=== PATIENT | female | born 1990 | race American Indian/Alaskan Native ===

== ENCOUNTER 2017-04-20 02:09 | Inpatient (IN) | payer MEDICAID ==
--- NOTE | 2017-04-20 02:31 | History and Physical Report ---
History of Present Illness Date of examination: 04/20/17 Date of admission: 04/20/17 02:11 Chief complaint: leaking amniotic fluid from vagina, cramping History of present illness: EDC Calculations by LMP: 04/29/2017 Past Medical History Current Allergies (reviewed today): AMOXICILLIN (Critical) Past History : 4 Term Births: 2 Living Children: 2 Para: 2 # 1 Delivery date: 2004 Weeks Gestation: 4-6 Delivery type: SAB Comments: denies # 2 Delivery date: 2008 Weeks Gestation: term Delivery type: Anesthesia type: epidural Delivery location: [facility] Infant Sex: Female weight: 7-1 Comments: delivered by Arpita # 3 Delivery date: 2009 Weeks Gestation: term Delivery type: Anesthesia type: epidural Delivery location: [facility] Infant Sex: Male weight: 5-2 Visit EDC Confirmation: New working EDC: 04/29/2017 EDC by LMP: 04/29/2017 Genetic History Father of baby: Jaiden Small Thalassemia: mother: no father: no Neural tube defect: mother: no father: no Down's Syndrome: mother: no father: no Pavan-Sachs: mother: no father: no Sickle Cell Dz/Trait: mother: no father: no Hemophilia: mother: no father: no Muscular Dystrophy: mother: no father: no Cystic Fibrosis: mother: no father: no [place]'s Dz: mother: no father: no Mental Retardation: mother: no father: no Fragile X: mother: no father: no Other Genetic or Chromosomal Dz: mother: no father: no Child with other defect: mother: no father: no > 3 spont. abortions: mother: no Hx of stillbirth: mother: no Social History: Patient is Smoking History: Patient has never smoked. Risk Factors: Smoked Tobacco Use: Never smoker Smokeless Tobacco Use: Never Caffeine use: 1 drinks per day Alcohol use: no Exercise: no Seatbelt use: 100 % Dietary Counseling: pn yes Past Medical History: Negative Past Medical History Past Surgical History: Negative Past Surgical History Past History - Obstetrical History Expected Date of Delivery: 04/29/17 Actual Gestation: 38 Week(s) 5 Day(s) : 4 Para: 2 Hx # Term Pregnancies: 2 Number of Pregnancies: 0 Spontaneous Abortions: 1 Induced : 0 Number of Living Children: 2 Medications and Allergies Allergies Allergy/AdvReac Type Severity Reaction Status Date / Time amoxicillin Allergy Rash Verified 04/20/17 03:43 Home Medications Medication Instructions Recorded Confirmed Last Taken Type No Known Home Medications [No 04/20/17 04/20/17 Unknown History Reported Home Medications] Review of Systems All systems: negative - Physical Exam Cardiovascular: Regular rate Lungs: Positive: Normal air movement Genitourinary (Female): Positive: normal external genitalia, normal perenium Vagina: Positive: normal moisture (clear fluid) Uterus: Positive: normal size Extremities: Positive: normal - Obstetrical Cervical Dilatation: 3 (per RN) Cervical Effacement Percentage: 50 station: -2 Uterine Contraction Pattern: Regular Uterine Contraction Intensity: Mild Results Result Diagrams: 04/20/17 04:35 All other labs normal. Assessment and Plan 26y/o @ 38+5 weeks with SROM, + Nitrazine by poultry hanger. SVE /-2, vertex, clear fluid. GBS +, otherswise uncomplicated course. Admission orders in EMR. Expectant management at this time to attempt adequate treatment of GBS. - Patient Problems (1) 38 weeks gestation of Current Visit: Yes Status: Acute (2) SROM (spontaneous rupture of membranes) Current Visit: Yes Status: Acute (3) GBS (group B Streptococcus carrier), +RV culture, currently Current Visit: Yes Status: Acute Plan to address problem: penicillin allergy - cleocin q8h until delivery
[2017-04-20] MEDS ORDERED: BRETHINE SUB-Q PRN (02:32)
[2017-04-20] MEDS ORDERED: ZOFRAN IV PRN (02:32)
[2017-04-20] MEDS ORDERED: STADOL IV PRN (02:32)
[2017-04-20] MEDS ORDERED: SUBLIMAZE IV PRN (02:32)
[2017-04-20] MEDS ORDERED: XYLOCAINE 2% INFILTRATI ONE (02:32)
[2017-04-20] MEDS ORDERED: MINERAL OIL PO PRN (02:32)
[2017-04-20] MEDS ORDERED: ePHEDrine SULFATE IV PRN ×2 (02:32→09:37)
[2017-04-20] MEDS ORDERED: PITOCin/NS 20 UNIT/1000ML DRIP 20 UNITS/1,000 ML BAG IV SCH (03:00)
[2017-04-20] MEDS: CLEOCIN 900 MG/50 mL 900 MG/50 ML BAG IV SCH ×2 (04:38→12:10)
[2017-04-20] MEDS: LACTATED RINGERS 1,000 ML IV SCH ×2 (04:44→08:47)
[2017-04-20 05:33] LABS: Hematocrit 31.2 % (30.3-42.9); Hemoglobin 10.3 gm/dl (10.1-14.3); Mean Corpuscular HGB Conc 33 % (30-34); Mean Corpuscular Volume 77 fl (79-97); Platelet Count 270 K/mm3 (140-440); Red Blood Count 4.04 M/mm3 (3.65-5.03); Red Cell Distribution Width 16.1 % (13.2-15.2); White Blood Count 9.4 K/mm3 (4.5-11.0)
[2017-04-20 05:36] LABS: Mean Corpuscular Hemoglobin 26 pg (28-32)
[2017-04-20] MEDS ORDERED: PITOCin/NS 30 UNIT/500ML 30 UNITS/500 ML BAG IV SCH (08:00)
--- NOTE | 2017-04-20 08:05 | Progress Note ---
Assessment and Plan - Patient Problems (1) 38 weeks gestation of Current Visit: Yes Status: Acute (2) GBS (group B Streptococcus carrier), +RV culture, currently Current Visit: Yes Status: Acute Plan to address problem: -s/p antibx (3) SROM (spontaneous rupture of membranes) Current Visit: Yes Status: Acute Plan to address problem: -start pitocin at this time -anticipate at this time Subjective - Subjective Date of service: 04/20/17 Principal diagnosis: IUP @ 38 5/7 withSROM and GBS pos Interval history: Pt doing well. Pt desires IV pain meds cx 4.5/60/-1 clear fluid noted on exam. Patient reports: loss of fluid, movement normal, contractions, no new complaints Objective - Vital Signs Vital Signs: Vital Signs - 12hr 04/20/17 04/20/17 04/20/17 02:34 03:08 06:11 Temperature 98.6 F Pulse Rate 90 90 85 Respiratory 18 Rate Blood Pressure 110/70 110/70 O2 Sat by Pulse 100 Oximetry 04/20/17 04/20/17 04/20/17 06:12 06:13 06:16 Temperature 99.3 F Pulse Rate 86 80 83 Respiratory 18 Rate Blood Pressure 112/71 112/71 O2 Sat by Pulse 100 100 Oximetry 04/20/17 04/20/17 04/20/17 06:21 06:26 06:31 Temperature Pulse Rate 83 81 89 Respiratory Rate Blood Pressure O2 Sat by Pulse 100 100 99 Oximetry 04/20/17 04/20/17 04/20/17 06:36 06:41 06:46 Temperature Pulse Rate 84 92 H 88 Respiratory Rate Blood Pressure O2 Sat by Pulse 100 100 100 Oximetry 04/20/17 04/20/17 04/20/17 06:51 06:56 07:01 Temperature Pulse Rate 84 92 H 93 H Respiratory Rate Blood Pressure O2 Sat by Pulse 100 98 99 Oximetry 04/20/17 04/20/17 04/20/17 07:06 07:11 07:16 Temperature Pulse Rate 91 H 91 H 100 H Respiratory Rate Blood Pressure O2 Sat by Pulse 99 98 98 Oximetry 04/20/17 04/20/17 04/20/17 07:21 07:26 07:31 Temperature Pulse Rate 95 H 93 H 95 H Respiratory Rate Blood Pressure O2 Sat by Pulse 99 98 99 Oximetry 04/20/17 04/20/17 04/20/17 07:35 07:36 07:41 Temperature Pulse Rate 86 82 94 H Respiratory Rate Blood Pressure 120/71 O2 Sat by Pulse 99 98 Oximetry 04/20/17 04/20/17 04/20/17 07:46 07:51 07:56 Temperature Pulse Rate 91 H 92 H 94 H Respiratory Rate Blood Pressure O2 Sat by Pulse 98 98 99 Oximetry 04/20/17 08:01 Temperature Pulse Rate 90 Respiratory Rate Blood Pressure O2 Sat by Pulse 100 Oximetry - Exam FHR: category 1 Cervical Dilatation: 4.5 Cervical Effacement Percentage: 60 station: -1 Uterine Contraction Pattern: Irregular Uterine Tone Measurement Phase: Resting Uterine Contraction Intensity: Mild Extremities: normal Deep Tendon Reflex Grade: Normal +2 - Labs Labs: Abnormal Labs 04/20/17 04:35 MCV 77 L MCH 26 L RDW 16.1 H Laboratory Results - last 24 hr 04/20/17 04/20/17 04:35 04:35 WBC 9.4 RBC 4.04 Hgb 10.3 Hct 31.2 MCV 77 L MCH 26 L MCHC 33 RDW 16.1 H Plt Count 270 Blood Type O POSITIVE Antibody Screen Negative
[2017-04-20] MEDS ORDERED: fentaNYL-BUPIV 2 MCG/ML-0.125% 200 MCG/100 ML BAG EPIDURAL ONE (09:31)
[2017-04-20] MEDS ORDERED: NARCAN 2 MG/2 ML IV PRN (09:37)
--- NOTE | 2017-04-20 09:37 | Anesthesia Consultation ---
Anesthesia Consult and Med Hx Date of service: 04/20/17 - Airway Anesthetic Teeth Evaluation: Good ROM Head & Neck: Adequate Mental/Hyoid Distance: Adequate Mallampati Class: Class II Intubation Access Assessment: Probably Good - Pre-Operative Health Status ASA Pre-Surgery Classification: ASA2 Proposed Anesthetic Plan: Epidural, Spinal - Pulmonary Hx Asthma: No COPD: No Hx Pneumonia: No - Cardiovascular System Hx Hypertension: No - Central Nervous System Hx Seizures: No Hx Psychiatric Problems: No - Endocrine Hx Renal Disease: No Hx End Stage Renal Disease: No Hx Hypothyroidism: No Hx Hyperthyroidism: No - Hematic Hx Anemia: No Hx Sickle Cell Disease: No - Other Systems Hx Alcohol Use: Yes (social pre )
[2017-04-20] MEDS ORDERED: fentaNYL-BUPIV 2 MCG/ML-0.125% 200 MCG/100 ML BAG EPIDURAL SCH (10:00)
--- NOTE | 2017-04-20 12:43 | Progress Note ---
Assessment and Plan - Patient Problems (1) 38 weeks gestation of Current Visit: Yes Status: Acute (2) GBS (group B Streptococcus carrier), +RV culture, currently Current Visit: Yes Status: Acute (3) SROM (spontaneous rupture of membranes) Current Visit: Yes Status: Acute Plan to address problem: -con't iol now in active labor -anticipate Subjective - Subjective Date of service: 04/20/17 Principal diagnosis: IUP @ 38 5/7 withSROM and GBS pos Interval history: called by RN due to pt having late decels that did nto resolvee with pitocin being off. Pt repositioned and currently not having decels. ISE placed and not late decels noted at this time pt did have an early decel due to head compression. cx is 8/100/-1 to 0 at this time Patient reports: loss of fluid, movement normal, contractions, no new complaints Objective - Vital Signs Vital Signs: Vital Signs - 12hr 04/20/17 04/20/17 04/20/17 02:34 03:08 06:11 Temperature 98.6 F Pulse Rate 90 90 85 Respiratory 18 Rate Blood Pressure 110/70 110/70 O2 Sat by Pulse 100 Oximetry 04/20/17 04/20/17 04/20/17 06:12 06:13 06:16 Temperature 99.3 F Pulse Rate 86 80 83 Respiratory 18 Rate Blood Pressure 112/71 112/71 O2 Sat by Pulse 100 100 Oximetry 04/20/17 04/20/17 04/20/17 06:21 06:26 06:31 Temperature Pulse Rate 83 81 89 Respiratory Rate Blood Pressure O2 Sat by Pulse 100 100 99 Oximetry 04/20/17 04/20/17 04/20/17 06:36 06:41 06:46 Temperature Pulse Rate 84 92 H 88 Respiratory Rate Blood Pressure O2 Sat by Pulse 100 100 100 Oximetry 04/20/17 04/20/17 04/20/17 06:51 06:56 07:01 Temperature Pulse Rate 84 92 H 93 H Respiratory Rate Blood Pressure O2 Sat by Pulse 100 98 99 Oximetry 04/20/17 04/20/17 04/20/17 07:06 07:11 07:16 Temperature Pulse Rate 91 H 91 H 100 H Respiratory Rate Blood Pressure O2 Sat by Pulse 99 98 98 Oximetry 04/20/17 04/20/17 04/20/17 07:21 07:26 07:31 Temperature Pulse Rate 95 H 93 H 95 H Respiratory Rate Blood Pressure O2 Sat by Pulse 99 98 99 Oximetry 04/20/17 04/20/17 04/20/17 07:35 07:36 07:41 Temperature Pulse Rate 86 82 94 H Respiratory Rate Blood Pressure 120/71 O2 Sat by Pulse 99 98 Oximetry 04/20/17 04/20/17 04/20/17 07:46 07:51 07:56 Temperature Pulse Rate 91 H 92 H 94 H Respiratory Rate Blood Pressure O2 Sat by Pulse 98 98 99 Oximetry 04/20/17 04/20/17 04/20/17 08:01 08:04 08:06 Temperature 98.9 F Pulse Rate 90 86 91 H Respiratory 16 Rate Blood Pressure 120/89 O2 Sat by Pulse 100 97 Oximetry 04/20/17 04/20/17 04/20/17 08:11 08:47 09:58 Temperature Pulse Rate 87 79 Respiratory 16 Rate Blood Pressure O2 Sat by Pulse 98 100 Oximetry 04/20/17 04/20/17 04/20/17 09:59 10:03 10:06 Temperature Pulse Rate 96 H 87 78 Respiratory Rate Blood Pressure 113/63 112/58 O2 Sat by Pulse 100 Oximetry 04/20/17 04/20/17 04/20/17 10:08 10:11 10:14 Temperature Pulse Rate 85 73 77 Respiratory Rate Blood Pressure 114/61 119/64 O2 Sat by Pulse 100 100 Oximetry 04/20/17 04/20/17 04/20/17 10:16 10:18 10:19 Temperature Pulse Rate 75 97 H 88 Respiratory Rate Blood Pressure 113/58 109/58 O2 Sat by Pulse 99 Oximetry 04/20/17 04/20/17 04/20/17 10:23 10:24 10:29 Temperature Pulse Rate 82 82 85 Respiratory Rate Blood Pressure 116/58 O2 Sat by Pulse 97 97 Oximetry 04/20/17 04/20/17 04/20/17 10:34 10:39 10:44 Temperature Pulse Rate 80 95 H 90 Respiratory Rate Blood Pressure O2 Sat by Pulse 99 100 100 Oximetry 04/20/17 04/20/17 04/20/17 10:49 10:54 10:58 Temperature Pulse Rate 81 87 80 Respiratory Rate Blood Pressure 118/62 O2 Sat by Pulse 100 100 Oximetry 04/20/17 04/20/17 04/20/17 10:59 11:04 11:09 Temperature Pulse Rate 87 82 79 Respiratory Rate Blood Pressure O2 Sat by Pulse 100 100 99 Oximetry 04/20/17 04/20/17 04/20/17 11:14 11:19 11:24 Temperature Pulse Rate 88 81 89 Respiratory Rate Blood Pressure O2 Sat by Pulse 100 100 100 Oximetry 04/20/17 04/20/17 04/20/17 11:29 11:34 11:39 Temperature Pulse Rate 79 86 79 Respiratory Rate Blood Pressure O2 Sat by Pulse 100 98 98 Oximetry 04/20/17 04/20/17 04/20/17 11:44 11:49 11:54 Temperature Pulse Rate 91 H 78 76 Respiratory Rate Blood Pressure 120/66 O2 Sat by Pulse 99 99 100 Oximetry 04/20/17 04/20/17 04/20/17 11:59 12:04 12:09 Temperature Pulse Rate 72 76 75 Respiratory Rate Blood Pressure O2 Sat by Pulse 100 100 100 Oximetry 04/20/17 04/20/17 04/20/17 12:14 12:15 12:19 Temperature 98.6 F Pulse Rate 87 85 84 Respiratory 15 Rate Blood Pressure 118/67 120/70 O2 Sat by Pulse 100 100 100 Oximetry 04/20/17 04/20/17 04/20/17 12:24 12:29 12:34 Temperature Pulse Rate 89 83 95 H Respiratory Rate Blood Pressure O2 Sat by Pulse 100 100 100 Oximetry - Exam FHR: category 2 Cervical Dilatation: 8.5 Cervical Effacement Percentage: 100 station: -1 Uterine Contraction Pattern: Irregular Uterine Tone Measurement Phase: Resting Uterine Contraction Intensity: Mild Extremities: normal Deep Tendon Reflex Grade: Normal +2 - Labs Labs: Abnormal Labs 04/20/17 04:35 MCV 77 L MCH 26 L RDW 16.1 H Laboratory Results - last 24 hr 04/20/17 04/20/17 04/20/17 04:35 04:35 04:35 WBC 9.4 RBC 4.04 Hgb 10.3 Hct 31.2 MCV 77 L MCH 26 L MCHC 33 RDW 16.1 H Plt Count 270 RPR Nonreactive Blood Type O POSITIVE Antibody Screen Negative
--- NOTE | 2017-04-20 14:01 | Procedure Note ---
OB Delivery Note - Delivery Date of Delivery: 04/20/17 Surgeon: ALTHEA MAGAÑA Estimated blood loss: 200cc - Vaginal Delivery presentation: vertex Delivery position: OA Intrapartum events: mult.variable deceleratio Delivery augmentation: pitocin Delivery monitor: external FHT, external uterine, internal FHT Route of delivery: Delivery placenta: spontaneous Delivery cord: 3 umbilical vessels Episiotomy: none Delivery laceration: 2nd degree (labial) Delivery repair: vicryl (3-0) Anesthesia: epidural Delivery comments: Delivery as above w/o complications. Ant shoulder and rest of infant delivered without difficulty. a shoulder cord was noted and easily reduced with delivery. Placenta intact until pulse not palpated. cord then clamped x 2 and cut x 1. was placed on maternal abdomen. Pt had lacerations as above and repaired in usualy fashion with above stated sucture. Mother and stable in LDR. - A at 1 minute: 8 at 5 minutes: 9 Infant Gender: Male (6lbs 7oz)
[2017-04-20] MEDS ORDERED: DULCOLAX PR PRN (16:46)
[2017-04-20] MEDS ORDERED: TUCKS PAD TP PRN (16:46)
[2017-04-20] MEDS ORDERED: NORCO 5/325 PO PRN (16:46)
[2017-04-20] MEDS ORDERED: PHENERGAN PO PRN (16:46)
[2017-04-20] MEDS ORDERED: LANSINOH TP PRN (16:46)
[2017-04-20] MEDS ORDERED: TYLENOL PO PRN (16:46)
[2017-04-20] MEDS ORDERED: BENADRYL PO PRN (16:46)
[2017-04-20] MEDS ORDERED: PHENERGAN PR PRN (16:46)
[2017-04-20] MEDS ORDERED: SODIUM CHLORIDE FLUSH SYRINGE 10 ML IV NR (17:00)
[2017-04-20] MEDS: MOTRIN PO SCH (17:29)
[2017-04-21 05:49] LABS: Hematocrit 33.7 % (30.3-42.9); Hemoglobin 10.9 gm/dl (10.1-14.3)
[2017-04-21] MEDS ORDERED: BOOSTRIX IM ONE (06:00)
[2017-04-21] MEDS: MOTRIN PO SCH ×3 (06:33→17:46)
--- NOTE | 2017-04-21 07:58 | Progress Note ---
Assessment and Plan patient doing well, desires to d/c home today. IVETTE lucas, H&H 10.9/ 33.7. pt is declining circumcision on at this time, reviewed office policy. plan for routine f/u in office for visit. - Patient Problems (1) (normal spontaneous vaginal delivery) Current Visit: Yes Status: Acute Subjective - Subjective Date of service: 04/21/17 Principal diagnosis: day #1 s/p Interval history: EDC Calculations by LMP: 04/29/2017 Past Medical History Current Allergies (reviewed today): AMOXICILLIN (Critical) Past History : 4 Term Births: 2 Living Children: 2 Para: 2 # 1 Delivery date: 2004 Weeks Gestation: 4-6 Delivery type: SAB Comments: denies # 2 Delivery date: 2008 Weeks Gestation: term Delivery type: Anesthesia type: epidural Delivery location: [facility] Infant Sex: Female weight: 7-1 Comments: delivered by Arpita # 3 Delivery date: 2009 Weeks Gestation: term Delivery type: Anesthesia type: epidural Delivery location: [facility] Infant Sex: Male weight: 5-2 Visit EDC Confirmation: New working EDC: 04/29/2017 EDC by LMP: 04/29/2017 Genetic History Father of baby: Jaiden Small Thalassemia: mother: no father: no Neural tube defect: mother: no father: no Down's Syndrome: mother: no father: no Pavan-Sachs: mother: no father: no Sickle Cell Dz/Trait: mother: no father: no Hemophilia: mother: no father: no Muscular Dystrophy: mother: no father: no Cystic Fibrosis: mother: no father: no [place]'s Dz: mother: no father: no Mental Retardation: mother: no father: no Fragile X: mother: no father: no Other Genetic or Chromosomal Dz: mother: no father: no Child with other defect: mother: no father: no > 3 spont. abortions: mother: no Hx of stillbirth: mother: no Social History: Patient is Smoking History: Patient has never smoked. Risk Factors: Smoked Tobacco Use: Never smoker Smokeless Tobacco Use: Never Caffeine use: 1 drinks per day Alcohol use: no Exercise: no Seatbelt use: 100 % Dietary Counseling: pn yes Past Medical History: Negative Past Medical History Past Surgical History: Negative Past Surgical History Patient reports: appetite normal, voiding normally, pain well controlled, ambulating normally, no dizzy ambulation, no nauseated : doing well, nursing well (breast and bottle feeding) Objective - Vital Signs Latest vital signs: Vital Signs Temp Pulse Resp BP Pulse Ox 04/21/17 00:00 98.2 F 84 20 101/53 04/20/17 20:00 98.8 F 90 18 117/68 04/20/17 17:13 18 04/20/17 16:00 98.5 F 76 16 107/66 04/20/17 14:59 106 H 128/84 04/20/17 14:29 89 95/65 04/20/17 14:14 96 H 101/58 04/20/17 13:59 102 H 114/55 04/20/17 13:43 98 H 108/57 04/20/17 13:24 105 H 100 04/20/17 13:19 119 H 100 04/20/17 13:14 98 H 100 04/20/17 13:09 84 100 04/20/17 13:04 83 100 04/20/17 12:59 89 100 04/20/17 12:54 86 100 04/20/17 12:49 78 100 04/20/17 12:44 87 100 04/20/17 12:39 81 100 04/20/17 12:37 82 121/71 04/20/17 12:34 95 H 100 04/20/17 12:29 83 100 04/20/17 12:24 89 100 04/20/17 12:19 84 100 04/20/17 12:15 98.6 F 85 15 120/70 100 04/20/17 12:14 87 118/67 100 04/20/17 12:09 75 100 04/20/17 12:04 76 100 04/20/17 11:59 72 100 04/20/17 11:54 76 120/66 100 04/20/17 11:49 78 99 04/20/17 11:44 91 H 99 04/20/17 11:39 79 98 04/20/17 11:34 86 98 04/20/17 11:29 79 100 04/20/17 11:24 89 100 04/20/17 11:19 81 100 04/20/17 11:14 88 100 04/20/17 11:09 79 99 04/20/17 11:04 82 100 04/20/17 10:59 87 100 04/20/17 10:58 80 118/62 04/20/17 10:54 87 100 04/20/17 10:49 81 100 04/20/17 10:44 90 100 04/20/17 10:39 95 H 100 04/20/17 10:34 80 99 04/20/17 10:29 85 97 04/20/17 10:24 82 97 04/20/17 10:23 82 116/58 04/20/17 10:19 88 99 04/20/17 10:18 97 H 109/58 04/20/17 10:16 75 113/58 04/20/17 10:14 77 119/64 100 04/20/17 10:11 73 114/61 04/20/17 10:08 85 100 04/20/17 10:06 78 112/58 04/20/17 10:03 87 100 04/20/17 09:59 96 H 113/63 04/20/17 09:58 79 100 04/20/17 08:47 16 04/20/17 08:11 87 98 04/20/17 08:06 91 H 97 04/20/17 08:04 98.9 F 86 16 120/89 04/20/17 08:01 90 100 04/20/17 07:56 94 H 99 Intake and Output 04/20/17 04/21/17 04/21/17 22:59 06:59 14:59 Intake Total 240 240 Output Total 800 Balance -560 240 Intake: Oral 240 240 Output: Urine 800 Void 800 Other: Total, Intake Amount 240 240 Total, Output Amount 800 # Voids Void 1 - Exam Breasts: Present: normal, Cardiovascular: Present: Regular rate Lungs: Present: Clear to auscultation, Normal air movement Abdomen: Present: normal appearance, soft Vulva: both: laceration/episiotomy Uterus: Present: normal, firm, fundal height at umbilicus Extremities: Present: normal Incision: Present: normal, dry, intact
--- NOTE | 2017-04-21 08:01 | Discharge Summary ---
Providers - Providers Date of Admission: 04/20/17 02:11 Date of discharge: 04/21/17 (desires d/c home) Attending physician: IRMA NAGEL Primary care physician: IRMA NAGEL Hospitalization Reason for admission: active labor, rupture of membranes Delivery: Episiotomy: none Laceration: 2nd degree Incision: normal, dry, intact complications: none Discharge diagnosis: IUP at term delivered [place] baby: male Hospital course: uncomplicated vaginal Condition at discharge: Good Disposition: DC-01 TO HOME OR SELFCARE - Discharge Diagnoses (1) (normal spontaneous vaginal delivery) Status: Acute Plan - Discharge Medications Prescriptions: Ibuprofen [Motrin 800 MG tab] 800 mg PO Q8HR PRN #30 tablet PRN Reason: Pain Lidocain2.5%/Prilocai2.5% [Emla] 5 gm TP ONCE PRN #1 tube PRN Reason: Pain - Provider Discharge Summary Activity: routine, no sex for 6 weeks, no heavy lifting 4 weeks, no strenuous exercise Diet: routine Instructions: routine Additional instructions: [] Smoking cessation referral if applicable(refer to patient education folder for contact #) [] Refer to [facility]'s [facility] Booklet Call your doctor immediately for: * Fever > 100.5 * Heavy vaginal bleeding ( >1 pad per hour) * Severe persistent headache * Shortness of breath * Reddened, hot, painful area to leg or breast * Drainage or odor from incision. * Keep incision clean and dry at all times and follow doctor's instructions regarding bathing/showering - Follow up plan Follow up: IRMA NAGEL MD [Primary Care Provider] - 6 Weeks (Congratulations! Please call [phone] to schedule your visit in 6 weeks. If you decide to have your son circumcised, please call the office to schedule appointment in the next week. (Infant must weigh less than 10 pounds.))
--- NOTE | 2017-04-21 10:55 | Progress Note ---
Subjective Date of service: 04/21/17 Principal diagnosis: day #1 s/p Interval history: 1st day after normal vaginal delivery Patient is in the bed, comfortable. Pain is well controlled with pain meds. Ambulated well. No residual neurological deficit. No anesthesia complications Objective - Constitutional Vitals: Vital Signs - 12hr 04/21/17 04/21/17 00:00 08:00 Temperature 98.2 F 98.3 F Pulse Rate 84 74 Respiratory 20 18 Rate Blood Pressure 101/53 95/54 - Labs CBC & Chem 7: 04/21/17 05:02
[2017-04-21 17:06] VITALS: BP 116/66
== END 2017-04-21 18:50 | disposition home or self-care (01) | DRG 775 ==
LOC: TRG 02:09 → LD 02:11 → OB 16:25
PROVIDERS: ADMIT Obstetrics & Gynecology; ATTEND Obstetrics & Gynecology
PROC: 10E0XZZ Delivery of Products of Conception, External Approach (ICD-10-PCS; principal; 2017-04-20)
PROC: 0KQM0ZZ Repair Perineum Muscle, Open Approach (ICD-10-PCS; 2017-04-20)
PROC: 3E0S3CZ (ICD-10-PCS; 2017-04-20)
PROC: 00HU33Z Insertion of Infusion Device into Spinal Canal, Percutaneous Approach (ICD-10-PCS; 2017-04-20)
DX: O99.824 Streptococcus B carrier state complicating childbirth (principal); O76 Abnormality in fetal heart rate and rhythm complicating labor and delivery; O70.1 Second degree perineal laceration during delivery; O99.314 Alcohol use complicating childbirth; Z37.0 Single live birth; Z3A.38 38 weeks gestation of pregnancy; Z88.1 Allergy status to other antibiotic agents; Z72.89 Other problems related to lifestyle; O69.89X0 Labor and delivery complicated by other cord complications, not applicable or unspecified
CPT/HCPCS: 36415; 85014; 85018; 85027; 86592; 86850; 86900; 86901; 99211; A6250; G0463; J0595; J2590; J7120